=== PATIENT | female | born 1995 | race Caucasian/White ===

== ENCOUNTER 2021-09-27 12:26 | Outpatient (CLI) | payer OTHER ==
[~2021-09-27] VITALS: Ht 162.6 cm; Wt 70.8 kg
[~2021-09-27 12:26] MED LIST: MULTTAB20 PO
[2021-09-27 12:41] VITALS: BP 120/78
[2021-09-27] MEDS ORDERED: PANT20TA6 PO (14:50)
[2021-09-27] MEDS ORDERED: FERR325T3 PO (14:50)
== END 2021-09-27 13:49 | disposition home or self-care (01) ==
LOC: M LDO 12:26
PROVIDERS: ATTEND Obstetrics & Gynecology
DX: O26.893 Other specified pregnancy related conditions, third trimester (principal); R42 Dizziness and giddiness; Z3A.36 36 weeks gestation of pregnancy
CPT/HCPCS: 59025; G0378; G0463

== ENCOUNTER 2021-10-14 00:17 | Inpatient (IN) | payer OTHER ==
[2021-10-14] VITALS (9 sets, daily range): BP systolic 111–127; BP diastolic 64–80
[~2021-10-14] VITALS: Ht 162.6 cm; Wt 70.6 kg
[~2021-10-14 00:17] MED LIST changes: +FERR325T3 PO; +PANT20TA6 PO
[2021-10-14] MEDS ORDERED: LACTATED RINGER'S 1000 ML IV STA (01:03)
[2021-10-14] MEDS ORDERED: METHYLERGONOVINE MALEATE 0.2 MG/ML VIAL (J2210) IM PRN (01:05)
[2021-10-14] MEDS ORDERED: OXYTOCIN DRIP 30 UNITS in IV 1 EA IV PRN (01:05)
[2021-10-14] MEDS ORDERED: LIDOCAINE 1% MDV 20ML VIAL INFIL PRN (01:05)
[2021-10-14] MEDS ORDERED: TRANEXAMIC ACID INJection 1,000 MG in NS 100 ML IV PRN (01:05)
[2021-10-14] MEDS ORDERED: LR 1,000 ML IV SCH (01:05)
[2021-10-14 01:36] LABS: HEMATOCRIT 36.4 % (36.0-47.0); HEMOGLOBIN 12.4 g/dl (12.0-15.5); MEAN CORPUSCULAR HEMOGLOBIN 29.6 pg (27.0-33.0); MEAN CORPUSCULAR HGB CONC 34.1 g/dl (32.0-36.5); MEAN CORPUSCULAR VOLUME 86.9 fl (80.0-96.0); PLATELET COUNT, AUTOMATED 293 10^3/uL (150-450); RED BLOOD COUNT 4.19 10^6/uL (4.00-5.40); WHITE BLOOD COUNT 14.1 10^3/uL (4.0-10.0)
[2021-10-14] MEDS ORDERED: FENTANYL 2MCG/ML ROPIVACAINE 0.2% IN 0.9% NACL 100ML IVBAG As Ordered ONE (02:08)
[2021-10-14] MEDS ORDERED: diphenhydrAMINE 50MG/ML VIAL (J1200) IV PRN ×2 (03:00→03:15)
[2021-10-14] MEDS ORDERED: fentaNYL 100 MCG/2 ML INJECTION As Ordered ONE (03:00)
[2021-10-14] MEDS ORDERED: LACTATED RINGER'S 1000 ML IV PRN (03:00)
[2021-10-14] MEDS ORDERED: ePHEDrine SULFATE 25 MG/5 ML(5MG/ML) SYRINGE IV PRN (03:00)
[2021-10-14] MEDS ORDERED: FENTANYL/ROPIVACAINE/NACL BAG 100 ML EPIDURAL SCH (03:00)
[2021-10-14] MEDS ORDERED: EPIDURAL/PCA KEYS XX PRN (03:00)
[2021-10-14] MEDS ORDERED: EPIDURAL COMMENT XX SCH (03:00)
[2021-10-14] MEDS ORDERED: ONDANSETRON 4MG/2ML VIAL IV PRN ×2 (03:00→03:15)
[2021-10-14] MEDS ORDERED: REFRIGERATOR IV KEYS XX PRN (03:00)
[2021-10-14] MEDS ORDERED: NALOXONE INJ 0.4MG/1ML VIAL (J2310 PER 1MG) IV PRN ×3 (03:00→03:15)
[2021-10-14] MEDS ORDERED: OXYTOCIN 30 UNITS IN 0.9% NaCl 500ML IV BAG (J2590) As Ordered ONE (03:07)
[2021-10-14] MEDS ORDERED: NALBUPHINE HCL 10 MG/ML AMP (J2300) IV PRN (03:15)
[2021-10-14] MEDS ORDERED: METOCLOPRAMIDE INJ 10MG/2ML VIAL (J2765 PER 1) IV PRN (03:15)
[2021-10-14] MEDS ORDERED: OXYTOCIN DRIP 30 UNITS in IV 1 EA IV SCH (06:10)
[2021-10-14] MEDS ORDERED: DIBUCAINE 1% OINTMENT 30GM TOP PRN (06:10)
[2021-10-14] MEDS ORDERED: ACETAMINOPHEN TAB 650MG DOSE (2X325MG) PO PRN (06:10)
[2021-10-14] MEDS ORDERED: IBUPROFEN 800 MG TAB PO PRN (06:10)
[2021-10-14] MEDS ORDERED: RHOGAM 300 MCG (1500 IU) INJ (J2790) IM SCH (06:10)
[2021-10-14] MEDS ORDERED: IBUPROFEN 600MG TAB PO PRN (06:10)
[2021-10-14] MEDS ORDERED: PROMETHAZINE 25 MG TAB PO PRN (06:10)
[2021-10-14] MEDS ORDERED: MEASLES,MUMPS,RUBELLA VACCINE INJ (MMR-II) (90707) SC SCH (06:10)
[2021-10-14] MEDS ORDERED: DOCUSATE SODIUM 100MG CAPSULE PO PRN (06:10)
[2021-10-14] MEDS ORDERED: ACETAMINOPHEN 500 MG TAB PO PRN (06:10)
[2021-10-14] MEDS ORDERED: LIDOCAINE 1% MDV 20ML VIAL SC ONE (06:10)
[2021-10-14] MEDS: PRENATAL VITAMINS CHEWABLE TABLET PO SCH (09:24)
[2021-10-14] MEDS ORDERED: CALCIUM CARBONATE 500 MG CHEW U/D PO PRN (17:05)
[2021-10-15 06:00] VITALS: BP 100/68
[2021-10-15] MEDS: PRENATAL VITAMINS CHEWABLE TABLET PO SCH (08:36)
[2021-10-15 17:54] VITALS: BP 120/73
[2021-10-16 06:00] VITALS: BP 118/67
[2021-10-16] MEDS ORDERED: IBUP-1022 PO (06:32)
[2021-10-16] MEDS ORDERED: COLA100C5 PO (06:32)
[2021-10-16] MEDS ORDERED: ACET1TAB55 PO (06:32)
[2021-10-16] MEDS: PRENATAL VITAMINS CHEWABLE TABLET PO SCH (09:41)
== END 2021-10-16 12:30 | disposition home or self-care (01) | DRG 806 ==
LOC: M LDO 00:17 → M LDI 01:29 → M OBS 09:10
PROVIDERS: ADMIT Obstetrics & Gynecology; ATTEND Obstetrics & Gynecology
PROC: 10E0XZZ Delivery of Products of Conception, External Approach (ICD-10-PCS; principal; 2021-10-14)
PROC: 0HQ9XZZ Repair Perineum Skin, External Approach (ICD-10-PCS; 2021-10-14)
DX: O99.12 Other diseases of the blood and blood-forming organs and certain disorders involving the immune mechanism complicating childbirth (principal); Z37.0 Single live birth; D68.0 Von Willebrand disease; O70.0 First degree perineal laceration during delivery; Z3A.39 39 weeks gestation of pregnancy; Z91.410 Personal history of adult physical and sexual abuse

== ENCOUNTER → 2022-12-07 | Outpatient (CLI) | payer OTHER ==
[~2022-12-07] MED LIST changes: +ACET1TAB55 PO; +COLA100C5 PO; +IBUP-1022 PO; +PROHANCE 279.3MG/ML 5ML VIAL As Ordered ONE
== END ==
LOC: M RAD 14:24
PROVIDERS: ATTEND Student in an Organized Health Care Education/Training Program
DX: G43.909 Migraine, unspecified, not intractable, without status migrainosus (principal)
CPT/HCPCS: 70553; A9576